=== PATIENT | female | born 1990 | race Caucasian/White ===

== ENCOUNTER 2019-01-28 05:00 | Inpatient (IN) | payer MEDICAID ==
[2019-01-28] MEDS ORDERED: Sodium Chloride 0.9% 2.5 ML Syringe FLUSH PRN (05:09)
[2019-01-28] MEDS ORDERED: Citric Acid/Sodium Citrate Solution 30 ML Cup PO ONE (05:09)
[2019-01-28] MEDS ORDERED: ceFAZolin 2 GM in Premix Bag 1 BAG IV ONE (05:09)
[2019-01-28] MEDS ORDERED: Sodium Chloride 0.9% 10 ML Syringe FLUSH PRN (05:09)
[2019-01-28] MEDS ORDERED: Sodium Chloride 0.9% 10 ML SDV IV PRN (05:09)
[2019-01-28] MEDS ORDERED: Oxytocin/0.9 % Sodium Chloride 30 UNIT/500 ML BAG IV SCH (05:15)
[2019-01-28] MEDS: Lactated Ringers 1,000 ML IV SCH ×3 (05:30→07:30)
[2019-01-28] MEDS ORDERED: ceFAZolin/Dextrose,Iso-Osmotic 2 GM/50 ML Duplex Bag IV ONE (06:51)
[2019-01-28] MEDS ORDERED: Morphine PF 10 MG/10 ML SDV ONE (06:52)
[2019-01-28] MEDS ORDERED: ePHEDrine 50 MG/ML SDV ONE (06:52)
[2019-01-28] MEDS ORDERED: Propofol 200 MG/20 ML SDV ONE (06:53)
[2019-01-28] MEDS ORDERED: Oxytocin 10 Units/1 ML SDV ONE ×2 (06:56)
[2019-01-28] MEDS ORDERED: Octyl 2-Cyanoacrylate 1 Tube ONE (07:11)
--- NOTE | 2019-01-28 07:11 | PCM.PREANE ---
Preanesthetic Assessment - Anesthesia/Transfusion/Family Hx Anesthesia History: Prior Anesthesia Without Reaction Family History of Anesthesia Reaction: No Intubation History: Unknown - Review of Systems General: No Symptoms Pulmonary: No Symptoms Cardiovascular: No Symptoms Gastrointestinal: No Symptoms Neurological: No Symptoms Other: Reports: None - Physical Assessment Height: 1.78 m Weight: 104.326 kg ASA Class: 2 Mental Status: Alert & Oriented x3 Airway Class: Mallampati = 2 Dentition: Reports: Normal Dentition Thyro-Mental Finger Breadths: 3 Mouth Opening Finger Breadths: 3 ROM/Head Extension: Full Lungs: Clear to Auscultation, Normal Respiratory Effort Cardiovascular: Regular Rate, Regular Rhythm - Lab Values: Laboratory Last Values WBC 10.59 K/uL (4.0-11.0) 01/28/19 05:50 RBC 3.55 M/uL (4.30-5.90) L 01/28/19 05:50 Hgb 11.5 g/dL (12.0-16.0) L 01/28/19 05:50 Hct 33.9 % (36.0-46.0) L 01/28/19 05:50 MCV 95.5 fL (80.0-98.0) 01/28/19 05:50 MCH 32.4 pg (27.0-32.0) H 01/28/19 05:50 MCHC 33.9 g/dL (31.0-37.0) 01/28/19 05:50 RDW Std Deviation 46.5 fl (28.0-62.0) 01/28/19 05:50 RDW Coeff of Keenan 13 % (11.0-15.0) 01/28/19 05:50 Plt Count 149 K/uL (150-400) L 01/28/19 05:50 MPV 11.60 fL (7.40-12.00) 01/28/19 05:50 Nucleated RBC % 0.0 /100WBC 01/28/19 05:50 Nucleated RBCs # 0 K/uL 01/28/19 05:50 Blood Type A NEGATIVE 01/28/19 05:50 Antibody Screen NEGATIVE 01/28/19 05:50 - Allergies Allergies/Adverse Reactions: Allergies Allergy/AdvReac Type Severity Reaction Status Date / Time No Known Allergies Allergy Verified 01/25/19 10:36 - Blood Blood Available: No - Anesthesia Plan Pre-Op Medication Ordered: None - Acknowledgements Anesthesia Type Planned: Spinal Pt an Appropriate Candidate for the Planned Anesthesia: Yes Alternatives and Risks of Anesthesia Discussed w Pt/Guardian: Yes Pt/Guardian Understands and Agrees with Anesthesia Plan: Yes PreAnesthesia Questionnaire HEENT History: Reports: None Cardiovascular History: Reports: Other (See Below) Other Cardiovascular History: elevated BP with first Respiratory History: Reports: None Gastrointestinal History: Reports: None Genitourinary History: Reports: None 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: Musculoskeletal History: Reports: None Neurological History: Reports: None Psychiatric History: Reports: None Endocrine/Metabolic History: Reports: Obesity/BMI 30+ Hematologic History: Reports: None Immunologic History: Reports: None Oncologic (Cancer) History: Reports: None Dermatologic History: Reports: None - Infectious Disease History Infectious Disease History: Reports: Chicken Pox - Past Surgical History Head Surgeries/Procedures: Reports: None HEENT Surgical History: Reports: None Cardiovascular Surgical History: Reports: None Respiratory Surgical History: Reports: None GI Surgical History: Reports: None Female Surgical History: Reports: Section (x2) Endocrine Surgical History: Reports: None Neurological Surgical History: Reports: None Musculoskeletal Surgical History: Reports: None Oncologic Surgical History: Reports: None Dermatological Surgical History: Reports: None - SUBSTANCE USE Smoking Status *Q: Current Every Day Smoker Tobacco Use Within Last Twelve Months: Cigarettes Second Hand Smoke Exposure: Yes Recreational Drug Use History: No - HOME MEDS Home Medications: Home Meds PNV No.115/Iron Fumarate/FA [ 19 Chewable Tablet] 1 tab PO DAILY [History] - CURRENT (IN HOUSE) MEDS Current Meds: Current Medications Lactated Ringer's (Ringers, Lactated) 1,000 mls @ 500 mls/hr IV BOLUS SARAH Last Admin: 01/28/19 06:33 Dose: 500 mls/hr Oxytocin/Sodium Chloride (Oxytocin 30 Unit/500 Ml-Ns) 30 unit in 500 mls @ 250 mls/hr IV TITRATE SARAH Sodium Chloride (Saline Flush) 10 ml FLUSH ASDIRECTED PRN PRN Reason: Keep Vein Open Sodium Chloride (Saline Flush) 2.5 ml FLUSH ASDIRECTED PRN PRN Reason: Keep Vein Open Sodium Chloride (Normal Saline) 10 ml IV ASDIRECTED PRN PRN Reason: IV Use Discontinued Medications Cefazolin Sodium/Dextrose (Ancef) Confirm Administered Dose 2 gm IV .STK-MED ONE Stop: 01/28/19 06:52 Citric Acid/Sodium Citrate (Bicitra Solution) 30 ml PO ONETIME ONE Stop: 01/28/19 05:10 Ephedrine Sulfate (Ephedrine Sulfate) Confirm Administered Dose 50 mg .ROUTE .STK-MED ONE Stop: 01/28/19 06:53 Cefazolin Sodium/Dextrose 2 gm (/ Premix) 50 mls @ 100 mls/hr IV ONETIME ONE Stop: 01/28/19 05:38 Morphine Sulfate (Duramorph Pf) Confirm Administered Dose 10 mg .ROUTE .STK-MED ONE Stop: 01/28/19 06:53 Oxytocin (Pitocin) Confirm Administered Dose 10 unit .ROUTE .STK-MED ONE Stop: 01/28/19 06:57 Oxytocin (Pitocin) Confirm Administered Dose 10 unit .ROUTE .STK-MED ONE Stop: 01/28/19 06:57 Propofol (Diprivan 20 Ml) Confirm Administered Dose 200 mg .ROUTE .STK-MED ONE Stop: 01/28/19 06:54
[2019-01-28] MEDS ORDERED: Phenylephrine/Normal Saline 100 MCG/ML 10 ML Syringe ONE (08:10)
--- NOTE | 2019-01-28 08:45 | PCM.OPNOTE ---
- General Post-Op/Procedure Note Date of Surgery/Procedure: 01/28/19 Operative Procedure(s): Repeat LTCS Findings: Liveborn female born at 07:58 with scores of 9/9. Baby weighed in at 6 lb 14 oz. Mother did well throughout the procedure. No known complications. Pre Op Diagnosis: Repeat LTCS, at 39.0 wga Post-Op Diagnosis: repeat LTCS, PP day 0 Anesthesia Technique: Spinal Primary Surgeon: Malinda Huber Secondary Surgeon: Naomie Conley (MS4) Anesthesia Provider: Krista Newton Radic Pathology: none Fluid Replacement, Intraop: 3,500 Output, Urine Amount: 75 EBL in mLs: 500 Complications: none known Free Text/Narrative:: Intake & Output 01/27/19 01/28/19 01/28/19 22:59 06:59 14:59 Output Total 75 Balance -75 see dictation note.
[2019-01-28] MEDS ORDERED: Acetaminophen/oxyCODONE 325-5 MG Tab PO PRN ×3 (08:55→09:24)
[2019-01-28] MEDS ORDERED: Ondansetron 4 MG/2 ML SDV IVPUSH PRN ×2 (08:55→09:24)
[2019-01-28] MEDS ORDERED: Naloxone 0.4 MG/ML Syringe IVPUSH PRN (08:55)
[2019-01-28] MEDS ORDERED: fentaNYL 100 MCG/2 ML SDV IVPUSH PRN (08:55)
[2019-01-28] MEDS ORDERED: diphenhydrAMINE 50 MG/ML SDV IVPUSH PRN ×2 (08:55→09:24)
[2019-01-28] MEDS ORDERED: Nalbuphine 10 MG/1 ML Vial IVPUSH PRN (08:55)
[2019-01-28] MEDS ORDERED: Ibuprofen 800 MG Tab PO PRN (09:24)
[2019-01-28] MEDS ORDERED: Bisacodyl 10 MG Supp RECTAL PRN (09:24)
[2019-01-28] MEDS ORDERED: Lanolin 100% Cream 7 GM Tube TOP PRN (09:24)
[2019-01-28] MEDS ORDERED: Lactated Ringers 1,000 ML IV SCH (09:30)
[2019-01-28] MEDS: Ketorolac 30 MG/ML SDV IVPUSH SCH ×3 (09:49→21:09)
[2019-01-28] MEDS: Nicotine 14 MG/24 Hr Patch TRDERM SCH (10:28)
--- NOTE | 2019-01-28 14:35 | OR ---
SURGEON: Malinda Huber M.D. DATE OF PROCEDURE: 01/28/2019 PREOPERATIVE DIAGNOSES: 1. 39-weeks' intrauterine . 2. Prior deliveries x2. 3. Declines vaginal trial of labor. POSTOPERATIVE DIAGNOSES: 1. 39-weeks' intrauterine . 2. Prior deliveries x2. 3. Declines vaginal trial of labor. PROCEDURE: Repeat low-transverse section. BEHAVIORAL HEALTH ASSOCIATE: Lin Conley MS4 ANESTHESIA: Spinal. ESTIMATED BLOOD LOSS: 500 mL. FLUIDS: 3500 mL of crystalloid. URINE OUTPUT: 75 mL. FINDINGS: Live-born female, scores of 9 and 9, weight is pending at the time of dictation. Extremely thin lower uterine segment. Normal-appearing tubes and ovaries. COMPLICATIONS: None known. DISPOSITION: Stable to recovery. BRIEF HISTORY: This is a 28-year-old female G3, P2-0-0-2, she has had two prior deliveries. She has had uncomplicated care. She presents at 39 weeks' gestation for repeat with risks discussed including bleeding, infection, injury to bowel, bladder, blood vessels, ureters, or other organs, risk of thromboembolic event, and risk of anesthesia. Understanding all these risks, she does desire to proceed. DESCRIPTION OF PROCEDURE: With the patient in left tilt position, under adequate spinal analgesia, the abdomen was prepped with chlorhexidine and draped in usual fashion for abdominal surgery. SCDs were in place. Lerma catheter was in place. She had received 2 g of Ancef IV and an appropriate time-out was held. After the abdomen was appropriately draped, documentation of adequate analgesia was performed. The prior cicatrix was excised using a scalpel, and the incision was carried through the subcutaneous tissue to the fascia, which was scored transversely in the midline. The fascia on the left side was extremely tenuous. The fascia on the right appeared normal. The fascial incision was extended laterally using curved Garcia scissors. The fascia was elevated from the underlying rectus muscle using sharp and blunt dissection. The rectus muscles were in the midline. The peritoneum was entered sharply. A finger was placed into the peritoneal cavity. There were no adhesions to the anterior abdominal wall. The incision was extended with sharp and blunt dissection. The Ryan O retractor was placed. The lower uterine segment was extremely thin. The visceral peritoneum was pushed downwards, and a transverse curvilinear incision was made above the ballooning portion of the lower uterine segment, and this incision was extended by blunt dissection. The amniotic membranes were ruptured with an Allis clamp. head was delivered via the uterine incision. With subsequent delivery of the 's shoulders and body. The infant was bulb suctioned by nose and mouth. The cord was doubly clamped and cut after it ceased to pulsate, and the infant was handed to the nurse in attendance at delivery. The is a liveborn female, scores of 9 and 9, weight is pending at the time of dictation. Cord blood was collected for cord ABGs as well as routine cord blood sampling. Pitocin was initiated after delivery of the infant to assist with uterine contractions. The placenta was removed by manual extraction. The cervix was opened with ring forceps. The uterus was cleaned with a dry laparotomy tape. The uterine incision was closed with a running lock suture of 0 Polysorb followed by a very gentle imbricating layer of 0 Polysorb. The uterine incision was hemostatic. Pericolic gutters and posterior cul-de-sac were cleaned with wet laparotomy tape. The Ryan C- section retractor was removed and the incision was again inspected, was completely hemostatic. Therefore, the rectus muscle and peritoneum were loosely approximated in the midline using a running mattress suture of 0 Polysorb. The posterior aspect of the fascia was inspected and was hemostatic. The fascial incision was closed with a running suture of 0 Polysorb. The subcutaneous tissue was irrigated. Any areas of bleeding that were noted were cauterized. Three deep subcutaneous sutures were placed due to the depth of the subcutaneous tissue. A running subcuticular suture of 3-0 Monocryl was then utilized to close the skin followed by Dermabond. Final sponge, needle, and instrument counts were reported as correct. There were no known complications. The patient was transferred to recovery in good condition. CA / AISSATOU /[id number]
[2019-01-28] MEDS: Docusate Sodium 100 MG Cap PO SCH (21:08)
[2019-01-29] MEDS: Ketorolac 30 MG/ML SDV IVPUSH SCH ×2 (04:50→09:29)
--- NOTE | 2019-01-29 09:19 | PCM48HPAN ---
Post Anesthesia Note - EVALUATION WITHIN 48HRS OF ANESTHETIC Vital Signs in Normal Range: Yes Patient Participated in Evaluation: Yes Respiratory Function Stable: Yes Airway Patent: Yes Cardiovascular Function Stable: Yes Hydration Status Stable: Yes Pain Control Satisfactory: Yes Nausea and Vomiting Control Satisfactory: Yes Mental Status Recovered: Yes Resp Rate: 18 - COMMENTS/OBSERVATIONS Free Text/Narrative:: no anesthesia problems
[2019-01-29] MEDS: Nicotine 14 MG/24 Hr Patch TRDERM SCH (09:27)
[2019-01-29] MEDS: Docusate Sodium 100 MG Cap PO SCH ×2 (09:28→20:55)
--- NOTE | 2019-01-29 11:55 | PCM.PNPP ---
- General Info Date of Service: 01/29/19 Admission Dx/Problem (Free Text): 28 yo s/p , POD 1 , stable , Good pain control , Normal lochia , Functional Status: Reports: Pain Controlled, Tolerating Diet, Ambulating, Urinating - Review of Systems General: Reports: No Symptoms HEENT: Reports: No Symptoms Pulmonary: Reports: No Symptoms Cardiovascular: Reports: No Symptoms Gastrointestinal: Reports: No Symptoms Genitourinary: Reports: No Symptoms Musculoskeletal: Reports: No Symptoms Skin: Reports: No Symptoms Neurological: Reports: No Symptoms Psychiatric: Reports: No Symptoms - General Info Date of Service: 01/29/19 - Patient Data Vital Signs - Most Recent: Last Vital Signs Temp 36.3 C 01/29/19 09:00 Pulse 78 01/29/19 09:00 Resp 18 01/29/19 09:19 BP 131/63 01/29/19 09:00 Pulse Ox 96 01/29/19 09:00 Weight - Most Recent: 104.326 kg I&O - Last 24 Hours: Intake & Output 01/28/19 01/29/19 01/29/19 22:59 06:59 14:59 Intake Total 500 Output Total 400 1100 Balance -400 -600 Lab Results - Last 24 Hours: Laboratory Results - last 24 hr 01/29/19 Range/Units 08:10 Hgb 11.6 L (12.0-16.0) g/dL Hct 35.0 L (36.0-46.0) % Med Orders - Current: Current Medications Bisacodyl (Dulcolax) 10 mg RECTAL ONETIME PRN PRN Reason: Constipation Diphenhydramine HCl (Benadryl) 25 mg IVPUSH Q6H PRN PRN Reason: Itching or Nausea Last Admin: 01/28/19 10:28 Dose: 25 mg Docusate Sodium (Colace) 100 mg PO BID SARAH Last Admin: 01/29/19 09:28 Dose: 100 mg Emollient Ointment (Lansinoh Hpa) 0 gm TOP ASDIRECTED PRN PRN Reason: Sore Nipples Fentanyl (Sublimaze) 50 mcg IVPUSH Q1H PRN PRN Reason: Pain (severe 7-10) Lactated Ringer's (Ringers, Lactated) 1,000 mls @ 125 mls/hr IV ASDIRECTED SARAH Ibuprofen (Motrin) 800 mg PO Q8H PRN PRN Reason: mild pain or fever Nalbuphine HCl (Nubain) 5 mg IVPUSH ASDIRECTED PRN PRN Reason: Itching Nicotine (Habitrol) 14 mg TRDERM DAILY [facility] Last Admin: 01/29/19 09:27 Dose: 14 mg Ondansetron HCl (Zofran) 4 mg IVPUSH Q6H PRN PRN Reason: Nausea Ondansetron HCl (Zofran) 4 mg IVPUSH Q4H PRN PRN Reason: Nausea/Vomiting Last Admin: 01/28/19 09:55 Dose: 4 mg Oxycodone/Acetaminophen (Percocet 325-5 Mg) 2 tab PO Q6H PRN PRN Reason: Pain (moderate 4-6) Oxycodone/Acetaminophen (Percocet 325-5 Mg) 1 tab PO Q4H PRN PRN Reason: Pain (moderate 4-6) Oxycodone/Acetaminophen (Percocet 325-5 Mg) 2 tab PO Q4H PRN PRN Reason: Pain (moderate 4-6) Discontinued Medications Cefazolin Sodium/Dextrose (Ancef) Confirm Administered Dose 2 gm IV .STK-MED ONE Stop: 01/28/19 06:52 Citric Acid/Sodium Citrate (Bicitra Solution) 30 ml PO ONETIME ONE Stop: 01/28/19 05:10 Diphenhydramine HCl (Benadryl) 25 mg IVPUSH Q4H PRN PRN Reason: Itching Stop: 01/29/19 08:55 Ephedrine Sulfate (Ephedrine Sulfate) Confirm Administered Dose 50 mg .ROUTE .STK-MED ONE Stop: 01/28/19 06:53 Cefazolin Sodium/Dextrose 2 gm (/ Premix) 50 mls @ 100 mls/hr IV ONETIME ONE Stop: 01/28/19 05:38 Lactated Ringer's (Ringers, Lactated) 1,000 mls @ 500 mls/hr IV BOLUS [facility] Last Admin: 01/28/19 07:30 Dose: 999 mls/hr Oxytocin/Sodium Chloride (Oxytocin 30 Unit/500 Ml-Ns) 30 unit in 500 mls @ 250 mls/hr IV TITRATE [facility] Ketorolac Tromethamine (Toradol) 30 mg IVPUSH Q6H [facility] Stop: 01/29/19 09:31 Last Admin: 01/29/19 09:29 Dose: 30 mg Morphine Sulfate (Duramorph Pf) Confirm Administered Dose 10 mg .ROUTE .STK-MED ONE Stop: 01/28/19 06:53 Naloxone HCl (Narcan) 0.1 mg IVPUSH ONETIME PRN PRN Reason: Respiratory Depression Stop: 01/29/19 08:55 Octyl Cyanoacrylate (Dermabond Advance) Confirm Administered Dose 1 applic .ROUTE .STK-MED ONE Stop: 01/28/19 07:12 Oxytocin (Pitocin) Confirm Administered Dose 10 unit .ROUTE .STK-MED ONE Stop: 01/28/19 06:57 Oxytocin (Pitocin) Confirm Administered Dose 10 unit .ROUTE .STK-MED ONE Stop: 01/28/19 06:57 Phenylephrine HCl (Phenylephrine In Ns 100 Mcg/Ml) Confirm Administered Dose 1 mg .ROUTE .STK-MED ONE Stop: 01/28/19 08:11 Propofol (Diprivan 20 Ml) Confirm Administered Dose 200 mg .ROUTE .STK-MED ONE Stop: 01/28/19 06:54 Sodium Chloride (Saline Flush) 10 ml FLUSH ASDIRECTED PRN PRN Reason: Keep Vein Open Sodium Chloride (Saline Flush) 2.5 ml FLUSH ASDIRECTED PRN PRN Reason: Keep Vein Open Sodium Chloride (Normal Saline) 10 ml IV ASDIRECTED PRN PRN Reason: IV Use - Infant Interaction Support Person: Significant Other - Recovery Exam Fundal Tone: Firm Fundal Level: At Umbilicus Fundal Placement: Midline Lochia Amount: Scant Lochia Color: Rubra/Red Perineum Description: Intact, Minimal Bruising/Swelling Episiotomy/Laceration: None Bladder Status: Indwelling Catheter in Place Urinary Elimination: Indwelling Catheter - Exam General: Alert HEENT: Pupils Equal Neck: Supple Lungs: Clear to Auscultation Cardiovascular: Regular Rate, Regular Rhythm GI/Abdominal Exam: Normal Bowel Sounds, Other (Pfannestiel skin incision c/d/i) Extremities: Normal Inspection Neurological: No New Focal Deficit Psy/Mental Status: Alert - Problem List & Annotations (1) delivery delivered SNOMED Code(s): 375722279 Code(s): O82 - ENCOUNTER FOR DELIVERY WITHOUT INDICATION Status: Acute Current Visit: Yes - Problem List Review Problem List Initiated/Reviewed/Updated: Yes - Assessment Assessment:: 28 yo s/p , POD 1 , stable , Good pain control , Normal lochia , - Plan Plan:: Routine postop and care
--- NOTE | 2019-01-30 07:12 | PCM.PNPP ---
- General Info Date of Service: 01/30/19 Admission Dx/Problem (Free Text): 28 yo s/p , POD 2 , stable , Good pain control , Normal lochia , Functional Status: Reports: Pain Controlled, Tolerating Diet, Ambulating, Urinating - Review of Systems General: Reports: No Symptoms HEENT: Reports: No Symptoms Pulmonary: Reports: No Symptoms Cardiovascular: Reports: No Symptoms Gastrointestinal: Reports: No Symptoms Genitourinary: Reports: No Symptoms Musculoskeletal: Reports: No Symptoms Skin: Reports: No Symptoms Neurological: Reports: No Symptoms Psychiatric: Reports: No Symptoms - General Info Date of Service: 01/30/19 - Patient Data Vital Signs - Most Recent: Last Vital Signs Temp 36.7 C 01/30/19 05:06 Pulse 75 01/30/19 05:06 Resp 18 01/30/19 05:06 BP 118/57 L 01/29/19 20:53 Pulse Ox 96 01/30/19 05:06 Weight - Most Recent: 104.326 kg Lab Results - Last 24 Hours: Laboratory Results - last 24 hr 01/29/19 Range/Units 08:10 Hgb 11.6 L (12.0-16.0) g/dL Hct 35.0 L (36.0-46.0) % Med Orders - Current: Current Medications Bisacodyl (Dulcolax) 10 mg RECTAL ONETIME PRN PRN Reason: Constipation Diphenhydramine HCl (Benadryl) 25 mg IVPUSH Q6H PRN PRN Reason: Itching or Nausea Last Admin: 01/28/19 10:28 Dose: 25 mg Docusate Sodium (Colace) 100 mg PO BID SARAH Last Admin: 01/29/19 20:55 Dose: 100 mg Emollient Ointment (Lansinoh Hpa) 0 gm TOP ASDIRECTED PRN PRN Reason: Sore Nipples Fentanyl (Sublimaze) 50 mcg IVPUSH Q1H PRN PRN Reason: Pain (severe 7-10) Lactated Ringer's (Ringers, Lactated) 1,000 mls @ 125 mls/hr IV ASDIRECTED SARAH Ibuprofen (Motrin) 800 mg PO Q8H PRN PRN Reason: mild pain or fever Last Admin: 01/29/19 17:13 Dose: 800 mg Nalbuphine HCl (Nubain) 5 mg IVPUSH ASDIRECTED PRN PRN Reason: Itching Nicotine (Habitrol) 14 mg TRDERM DAILY [facility] Last Admin: 01/29/19 09:27 Dose: 14 mg Ondansetron HCl (Zofran) 4 mg IVPUSH Q6H PRN PRN Reason: Nausea Ondansetron HCl (Zofran) 4 mg IVPUSH Q4H PRN PRN Reason: Nausea/Vomiting Last Admin: 01/28/19 09:55 Dose: 4 mg Oxycodone/Acetaminophen (Percocet 325-5 Mg) 2 tab PO Q6H PRN PRN Reason: Pain (moderate 4-6) Oxycodone/Acetaminophen (Percocet 325-5 Mg) 1 tab PO Q4H PRN PRN Reason: Pain (moderate 4-6) Oxycodone/Acetaminophen (Percocet 325-5 Mg) 2 tab PO Q4H PRN PRN Reason: Pain (moderate 4-6) Discontinued Medications Cefazolin Sodium/Dextrose (Ancef) Confirm Administered Dose 2 gm IV .STK-MED ONE Stop: 01/28/19 06:52 Citric Acid/Sodium Citrate (Bicitra Solution) 30 ml PO ONETIME ONE Stop: 01/28/19 05:10 Diphenhydramine HCl (Benadryl) 25 mg IVPUSH Q4H PRN PRN Reason: Itching Stop: 01/29/19 08:55 Ephedrine Sulfate (Ephedrine Sulfate) Confirm Administered Dose 50 mg .ROUTE .STK-MED ONE Stop: 01/28/19 06:53 Cefazolin Sodium/Dextrose 2 gm (/ Premix) 50 mls @ 100 mls/hr IV ONETIME ONE Stop: 01/28/19 05:38 Lactated Ringer's (Ringers, Lactated) 1,000 mls @ 500 mls/hr IV BOLUS [facility] Last Admin: 01/28/19 07:30 Dose: 999 mls/hr Oxytocin/Sodium Chloride (Oxytocin 30 Unit/500 Ml-Ns) 30 unit in 500 mls @ 250 mls/hr IV TITRATE SARAH Ketorolac Tromethamine (Toradol) 30 mg IVPUSH Q6H [facility] Stop: 01/29/19 09:31 Last Admin: 01/29/19 09:29 Dose: 30 mg Morphine Sulfate (Duramorph Pf) Confirm Administered Dose 10 mg .ROUTE .STK-MED ONE Stop: 01/28/19 06:53 Naloxone HCl (Narcan) 0.1 mg IVPUSH ONETIME PRN PRN Reason: Respiratory Depression Stop: 01/29/19 08:55 Octyl Cyanoacrylate (Dermabond Advance) Confirm Administered Dose 1 applic .ROUTE .STK-MED ONE Stop: 01/28/19 07:12 Oxytocin (Pitocin) Confirm Administered Dose 10 unit .ROUTE .STK-MED ONE Stop: 01/28/19 06:57 Oxytocin (Pitocin) Confirm Administered Dose 10 unit .ROUTE .STK-MED ONE Stop: 01/28/19 06:57 Phenylephrine HCl (Phenylephrine In Ns 100 Mcg/Ml) Confirm Administered Dose 1 mg .ROUTE .STK-MED ONE Stop: 01/28/19 08:11 Propofol (Diprivan 20 Ml) Confirm Administered Dose 200 mg .ROUTE .STK-MED ONE Stop: 01/28/19 06:54 Sodium Chloride (Saline Flush) 10 ml FLUSH ASDIRECTED PRN PRN Reason: Keep Vein Open Sodium Chloride (Saline Flush) 2.5 ml FLUSH ASDIRECTED PRN PRN Reason: Keep Vein Open Sodium Chloride (Normal Saline) 10 ml IV ASDIRECTED PRN PRN Reason: IV Use - Infant Interaction Support Person: Significant Other - Recovery Exam Fundal Tone: Firm Fundal Level: 1 Fingerbreadths Below Umbilicus Fundal Placement: Midline Lochia Amount: Small Lochia Color: Rubra/Red Perineum Description: Intact, Minimal Bruising/Swelling Episiotomy/Laceration: None Bladder Status: Indwelling Catheter in Place Urinary Elimination: Indwelling Catheter - Exam General: Alert, Oriented HEENT: Pupils Equal Neck: Supple Lungs: Clear to Auscultation Cardiovascular: Regular Rate GI/Abdominal Exam: Normal Bowel Sounds Extremities: Normal Inspection Skin: Warm Neurological: No New Focal Deficit Psy/Mental Status: Alert - Problem List & Annotations (1) delivery delivered SNOMED Code(s): 658561847 Code(s): O82 - ENCOUNTER FOR DELIVERY WITHOUT INDICATION Status: Acute Current Visit: Yes - Problem List Review Problem List Initiated/Reviewed/Updated: Yes - Assessment Assessment:: 28 yo s/p , POD 2 , stable , Good pain control , Normal lochia , - Plan Plan:: Discharge home today
[2019-01-30] MEDS: Docusate Sodium 100 MG Cap PO SCH (08:42)
== END 2019-01-30 10:50 | disposition home or self-care (01) | DRG 788 ==
LOC: MW.OB 05:00
PROVIDERS: ADMIT Obstetrics & Gynecology; ATTEND Obstetrics & Gynecology
PROC: 10D00Z1 Extraction of Products of Conception, Low, Open Approach (ICD-10-PCS; principal; 2019-01-28)
PROC: 6A550ZT Pheresis of Cord Blood Stem Cells, Single (ICD-10-PCS; principal; 2019-01-28)
DX: O34.211 Maternal care for low transverse scar from previous cesarean delivery (principal); N85.8 Other specified noninflammatory disorders of uterus; Z3A.39 39 weeks gestation of pregnancy; Z37.0 Single live birth; O99.334 Smoking (tobacco) complicating childbirth; F17.210 Nicotine dependence, cigarettes, uncomplicated; O99.214 Obesity complicating childbirth; E66.9 Obesity, unspecified
CPT/HCPCS: 36415; 59025; 82803; 85014; 85018; 85027; 86850; 86900; 86901; A9270-GY; J0690; J1200; J1885; J2270; J2370; J2405; J2590; J2704; J7120